=== PATIENT | male | born 1990 | race American Indian/Alaskan Native ===

== ENCOUNTER 2020-08-09 10:22 | Emergency (ER) | payer SELFPAY ==
[2020-08-09] MEDS ORDERED: KETOROLAC 60 MG/2 ML INJ IM ONE (11:26)
--- NOTE | 2020-08-09 11:28 | Emergency Department Report ---
ED Abdominal Pain HPI - General Chief Complaint: Abdominal Pain Stated Complaint: BODY ACHE Time Seen by Provider: 08/09/20 11:23 Source: patient Mode of arrival: Ambulatory Limitations: No Limitations - History of Present Illness Initial Comments: This is a pleasant 29-year-old male presents the emergency department chief complaint of left-sided flank pain that radiates in the left lower quadrant and left testicle over the past 3 days. Patient denies any injuries. He denies any aggravating alleviating factors. He describes this as an intermittent sharp stabbing pain. He states pain has been ongoing with no relief from [id number] medications. He denies any associated fever, chills, night sweats, headache, dizziness, blurry vision, nausea,, diarrhea, chest pain, shortness of breath or any other associated symptoms. He rates severity of pain is 9 out of 10 describes a sharp and stabbing radiating from the back to the lower abdomen. - Related Data Previous Rx's Medication Instructions Recorded Last Taken Type Doxycycline Hyclate [Doxycycline 100 mg PO Q12HR #28 tab 08/09/20 Unknown Rx Hyclate TAB] traMADoL [Ultram 50 MG tab] 50 mg PO Q6HR PRN #12 tablet 08/09/20 Unknown Rx ED Review of Systems ROS: Stated complaint: BODY ACHE Other details as noted in HPI Comment: All other systems reviewed and negative Constitutional: denies: chills, fever Eyes: denies: eye pain, eye discharge, vision change ENT: denies: ear pain, throat pain Respiratory: denies: cough, shortness of breath, wheezing Cardiovascular: denies: chest pain, palpitations Endocrine: no symptoms reported Gastrointestinal: as per HPI, abdominal pain. denies: nausea, diarrhea Genitourinary: as per HPI. denies: urgency, dysuria Musculoskeletal: denies: back pain, joint swelling, arthralgia Skin: denies: rash, lesions Neurological: denies: headache, weakness, paresthesias Psychiatric: denies: anxiety, depression Hematological/Lymphatic: denies: easy bleeding, easy bruising ED Past Medical Hx - Past Medical History Previous Medical History?: Yes Additional medical history: HX Graves - Medications Home Medications: Home Medications Medication Instructions Recorded Confirmed Last Taken Type Doxycycline Hyclate [Doxycycline 100 mg PO Q12HR #28 tab 08/09/20 Unknown Rx Hyclate TAB] traMADoL [Ultram 50 MG tab] 50 mg PO Q6HR PRN #12 tablet 08/09/20 Unknown Rx ED Physical Exam - General Limitations: No Limitations General appearance: alert, in no apparent distress - Head Head exam: Present: atraumatic, normocephalic - Eye Eye exam: Present: normal appearance, PERRL, EOMI Pupils: Present: normal accommodation - ENT ENT exam: Present: normal exam, normal orophraynx, mucous membranes moist - Neck Neck exam: Present: normal inspection, full ROM. Absent: tenderness, meningis mus - Respiratory Respiratory exam: Present: normal lung sounds bilaterally. Absent: respiratory distress, wheezes, rales, rhonchi, stridor - Cardiovascular Cardiovascular Exam: Present: regular rate, normal rhythm, normal heart sounds. Absent: systolic murmur, diastolic murmur, rubs, gallop - GI/Abdominal GI/Abdominal exam: Present: soft, tenderness (mild TTP To LLQ, no rebound or guarding, negative mcburneys point tenderness, negative pitts sign ), normal bowel sounds. Absent: distended, guarding, rebound, rigid - Rectal Rectal exam: Present: deferred - Extremities Exam Extremities exam: Present: normal inspection, full ROM. Absent: tenderness - Back Exam Back exam: Present: normal inspection, full ROM, CVA tenderness (L). Absent: tenderness, CVA tenderness (R) - Neurological Exam Neurological exam: Present: alert, oriented X3, CN II-XII intact, normal gait - Psychiatric Psychiatric exam: Present: normal affect, normal mood - Skin Skin exam: Present: warm, dry, intact, normal color. Absent: rash ED Course Vital Signs 08/09/20 10:50 Temperature 99.5 F Pulse Rate 107 H Respiratory 18 Rate Blood Pressure 133/76 [Right] O2 Sat by Pulse 100 Oximetry ED Medical Decision Making - Lab Data Result diagrams: 08/09/20 11:42 08/09/20 11:42 Lab Results 08/09/20 08/09/20 08/09/20 Range/Units 11:34 11:42 11:42 WBC 12.6 H (4.5-11.0) K/mm3 RBC 4.44 (3.65-5.03) M/mm3 Hgb 13.6 (11.8-15.2) gm/dl Hct 39.7 (35.5-45.6) % MCV 90 (84-94) fl MCH 31 (28-32) pg MCHC 34 (32-34) % RDW 13.0 L (13.2-15.2) % Plt Count 272 (140-440) K/mm3 Lymph % (Auto) 8.6 L (13.4-35.0) % [place] % (Auto) 11.8 H (0.0-7.3) % Eos % (Auto) 0.0 (0.0-4.3) % Baso % (Auto) 0.8 (0.0-1.8) % Lymph # (Auto) 1.1 L (1.2-5.4) K/mm3 [place] # (Auto) 1.5 H (0.0-0.8) K/mm3 Eos # (Auto) 0.0 (0.0-0.4) K/mm3 Baso # (Auto) 0.1 (0.0-0.1) K/mm3 Seg Neutrophils % 78.8 H (40.0-70.0) % Seg Neutrophils # 9.9 H (1.8-7.7) K/mm3 Sodium 135 L (137-145) mmol/L Potassium 4.0 (3.6-5.0) mmol/L Chloride 94.8 L (98-107) mmol/L Carbon Dioxide 29 (22-30) mmol/L Anion Gap 15 mmol/L BUN 9 (9-20) mg/dL Creatinine 0.7 L (0.8-1.3) mg/dL Estimated GFR > 60 ml/min BUN/Creatinine Ratio 13 % Glucose 121 H (75-100) mg/dL Calcium 9.7 (8.4-10.2) mg/dL Total Bilirubin 0.60 (0.1-1.2) mg/dL AST 12 (5-40) units/L ALT 8 (7-56) units/L Alkaline Phosphatase 93 (35-129) units/L Total Protein 9.4 H (6.3-8.2) g/dL Albumin 4.0 (3.9-5) g/dL Albumin/Globulin Ratio 0.7 % Lipase 16 (13-60) units/L Urine Color [place] (Yellow) Urine Turbidity Cloudy (Clear) Urine pH 5.0 (5.0-7.0) Ur Specific [place] 1.029 (1.003-1.030) Urine Protein 100 mg/dl (Negative) mg/dL Urine Glucose (UA) Neg (Negative) mg/dL Urine Ketones 20 (Negative) mg/dL Urine Blood Sm (Negative) Urine Nitrite Neg (Negative) Urine Bilirubin Neg (Negative) Urine Urobilinogen 4.0 (<2.0) mg/dL Ur Leukocyte Esterase Lg (Negative) Urine WBC (Auto) > 182.0 H (0.0-6.0) /HPF Urine RBC (Auto) 11.0 (0.0-6.0) /HPF Urine Mucus 3+ /HPF - Radiology Data Radiology results: report reviewed, image reviewed Cat Scan Report Signed Patient: KAREN PARK MR#: [id number] : 1990 Acct:[id number] Age/Sex: 29 / M ADM Date: 08/09/20 Loc: ED Attending Dr: Ordering Physician: AKI YBARRA Date of Service: 08/09/20 Procedure(s): CT abdomen pelvis wo con Accession Number(s): [id number] cc: AKI YBARRA CT abdomen pelvis wo con INDICATION: left flank pain radiating to LLQ. TECHNIQUE: All CT scans at this location are performed using the following dose modulation technique: Automated exposure control. CONTRAST: None. COMPARISON: None available. CT ABDOMEN: The parenchymal organs are unremarkable in appearance. Negative for abdominal mass, fluid or inflammation. The bowel is not dilated or thickened CT PELVIS: Negative for distal ureteral stone, pelvic fluid collection or inflammation. IMPRESSION: Negative for obstruction or localized inflammation. Signer Name: German Sofia MD Signed: 08/09/2020 1:25 PM Workstation Name: [id number] Transcribed By: ES Dictated By: German Sofia MD Electronically Authenticated By: German Sofia MD Signed Date/Time: 08/09/20 1325 - Medical Decision Making Patient nontoxic in no acute distress. His exam was concerning for nephrolithiasis versus epididymitis. CT of abdomen pelvis without contrast was unremarkable. Urine showed pyuria. Exam was consistent with epididymoorchitis. Ultrasound confirmed this without any evidence of torsion. Patient was given Rocephin and azithromycin in the emergency department for coverage of gonorrhea chlamydia and will be discharged with doxycycline x2 weeks and outpatient follow-up with urology. I recommended scrotal support and avoidance of all sexual contact and follow-up the health department for full STI testing. He is instructed to return the emergency department if he develops any change or worsening symptoms. Verbalized understand the diagnosis, treatment plan and follow-up instructions and all his questions were answered. - Differential Diagnosis epididymitis, pyelonephritis, urethritis Critical care attestation.: If time is entered above; I have spent that time in minutes in the direct care of this critically ill patient, excluding procedure time. ED Disposition Clinical Impression: Epididymitis Disposition: DC- TO HOME OR SELFCARE Is pt being admited?: No Condition: Stable Instructions: Epididymitis (ED), Epididymitis Prescriptions: Doxycycline Hyclate [Doxycycline Hyclate TAB] 100 mg PO Q12HR #28 tab traMADoL [Ultram 50 MG tab] 50 mg PO Q6HR PRN #12 tablet PRN Reason: Pain Referrals: PRIMARY CARE, [Primary Care Provider] - 3-5 Days BILL MUKHERJEE MD [Staff Physician] - 3-5 Days Forms: STI Treatment and Prevention Time of Disposition: 15:42
[2020-08-09 12:01] LABS: Bilirubin,Urine NEG (Negative); Blood,Urine SM (Negative); Color,Urine Amber (Yellow); Mucus,Urine 3+ /HPF
[2020-08-09 12:04] LABS: WBC,Urine > 182.0 /HPF (0.0-6.0)
[2020-08-09 12:46] LABS: Alanine Aminotransferase 8 units/L (7-56); BUN/Creatinine Ratio 13; Blood Urea Nitrogen 9 mg/dL (9-20); Calcium 9.7 mg/dL (8.4-10.2); Hemolysis Index 28
[2020-08-09 12:52] LABS: Hematocrit 39.7 % (35.5-45.6); Hemoglobin 13.6 gm/dl (11.8-15.2); Mean Corpuscular HGB Conc 34 % (32-34); Mean Corpuscular Volume 90 fl (84-94); Red Blood Count 4.44 M/mm3 (3.65-5.03)
[2020-08-09 12:53] LABS: Basophils # (Auto) 0.1 K/mm3 (0.0-0.1); Basophils % (Auto) 0.8 % (0.0-1.8); Lymphocytes # (Auto) 1.1 K/mm3 (1.2-5.4); Lymphocytes % (Auto) 8.6 % (13.4-35.0); Monocytes # (Auto) 1.5 K/mm3 (0.0-0.8); Monocytes % (Auto) 11.8 % (0.0-7.3); Platelet Count 272 K/mm3 (140-440)
--- NOTE | 2020-08-09 13:30 | Cat Scan Report ---
CT abdomen pelvis wo con INDICATION: left flank pain radiating to LLQ. TECHNIQUE: All CT scans at this location are performed using the following dose modulation technique: Automated exposure control. CONTRAST: None. COMPARISON: None available. CT ABDOMEN: The parenchymal organs are unremarkable in appearance. Negative for abdominal mass, fluid or inflammation. The bowel is not dilated or thickened CT PELVIS: Negative for distal ureteral stone, pelvic fluid collection or inflammation. IMPRESSION: Negative for obstruction or localized inflammation. Signer Name: German Sofia MD Signed: 08/09/2020 1:25 PM Workstation Name: [id number]
[2020-08-09] MEDS ORDERED: KETOROLAC 60 MG/2 ML INJ ONE (14:08)
[2020-08-09] MEDS ORDERED: LIDOCAINE-MPF (1%) 10 MG/1 ML VIAL 5 ML INFILTRATI ONE (15:38)
[2020-08-09] MEDS ORDERED: AZITHROMYCIN 250 MG TAB PO ONE (15:38)
--- NOTE | 2020-08-09 15:54 | Ultrasound Report ---
US testicular doppler comp INDICATION / CLINICAL INFORMATION: left sided testicle pain. COMPARISON: None available. FINDINGS: Testicles appear unremarkable. Color Doppler imaging shows normal vascular flow in each testicle. Small hydrocele on the left. 3.2 cm cyst in the left epididymis. The entire left epididymis is promin ent and appears edematous and slightly hypervascular. IMPRESSION: 1. Findings suggest diffuse and possibly chronic left epididymitis. Signer Name: Dick Salcido MD Signed: 08/09/2020 3:50 PM Workstation Name: [id number]
[2020-08-09 15:59] VITALS: BP 119/80
== END 2020-08-09 15:58 | disposition home or self-care (01) ==
LOC: ED 10:22
DX: N45.1 Epididymitis (principal)
CPT/HCPCS: 36415; 74176; 80053; 81001; 83690; 85025; 93975; 96372; 99284; J0696; J1885